=== PATIENT | female | born 1975 | race African-American/Black ===

== ENCOUNTER 2016-08-27 14:03 | Emergency (ER) | payer MEDICAID, OTHER ==
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
== END 2016-08-27 16:00 | disposition home or self-care (01) ==
LOC: ER 14:03
DX: G89.29 Other chronic pain (principal); M54.6 Pain in thoracic spine; K21.9 Gastro-esophageal reflux disease without esophagitis; F17.200 Nicotine dependence, unspecified, uncomplicated
CPT/HCPCS: Z7502

== ENCOUNTER 2018-08-14 15:01 | Inpatient (IN) | payer OTHER ==
--- NOTE | 2018-08-14 15:11 | ED Physician Chart ---
ED Chief Complaint/HPI - Patient Information Date Seen:: 08/14/18 Time Seen:: 15:00 Chief Complaint:: Left Arm Pain History of Present Illness:: onset x 12 hours of intermittent, sharp, non-MS type Left Arm Pain; pt denies trauma, LOC, ALOC, AMS, H/As, S/T, neck pain, C/P, SOB, Abd. Pain, A/N/V/D/C, fever, chills, or urinary s/s Allergies:: Allergies Allergy/AdvReac Type Severity Reaction Status Date / Time No Known Allergies Allergy Verified 08/27/16 14:10 Historian:: Patient, Family Member Review:: Nurse's Note Reviewed, Old Chart Reviewed ED Review of Systems - Review of Systems General/Constitutional: No fever, No chills, No weight loss, No weakness, No diaphoresis, No edema, No loss of appetite Skin: No skin lesions, No rash, No bruising Head: No headache, No light-headedness Eyes: No loss of vision, No pain, No diplopia ENT: No earache, No nasal drainage, No sore throat, No tinnitus Neck: No neck pain, No swelling, No thyromegaly, No stiffness, No mass noted Cardio Vascular: No chest pain, No palpitations, No PND, No orthopnea, No edema Pulmonary: No SOB, No cough, No sputum, No wheezing GI: No nausea, No vomiting, No diarrhea, No pain, No melena, No hematochezia, No constipation, No hematemesis G/U: No dysuria, No frequency, No hematuria, No nacturia Yield Loss Inspector: No vaginal discharge, No abnormal vaginal bleed, No contraction Musculoskeletal: No bone or joint pain, No back pain, Muscle pain Endocrine: No polyuria, No polydipsia Psychiatric: No prior psych history, No depression, No anxiety, No suicidal ideation, No homicidal ideation, No auditory hallucination, No visual hallucination Hematopoietic: No bruising, No lymphadenopathy Allergic/Immuno: No urticaria, No angioedema Neurological: No syncope, No focal symptoms, No weakness, No paresthesia, No headache, No seizure, No dizziness, No confusion, No vertigo ED Past Medical History - Past Medical History Obtainable: Yes Past Medical History: HTN Family History: HTN Social History: Smoker, Alcohol, No Drug Use, Surgical History: None Psychiatricy History: None Medication: Reviewed Family Medical History - Family Member Mother History Unknown: Yes Ethnicity: Non- Living Status: Still Living Hx Family Cancer: No Hx Family Coronary Artery Disease: No Hx Family Congestive Heart Failure: No Hx Family Hypertension: Yes Hx Family Stroke: No Hx Family Diabetes: No Hx Family Seizures: No Hx Family Dementia: No Hx Family AIDS: No Hx Family HIV: No Hx Family COPD: No Hx Family Hepatitis: No Hx Family Psychiatric Problems: No Hx Family Tuberculosis: No ED Physical Exam - Physical Examination General/Constitutional: Awake, Well-developed, well-nourished, Alert, No distress, GCS 15, Non-toxic appearing, Ambulatory Head: Atraumatic Eyes: Lids, conjuctiva normal, PERRL, EOMI Skin: Nl inspection, No rash, No skin lesions, No ecchymosis, Well hydrated, No lymphadenopathy ENMT: External ears, nose nl, TM canals nl, Nasal exam nl, Lips, teeth, gums nl , Oropharynx nl, Tonsils nl Other ENMT comments:: + Gingivitis Neck: Nontender, Full ROM w/o pain, No JVD, No nuchal rigidity, No bruit, No mass, No stridor Respiratory: Nl effort/Exclusion, Clear to Auscultation, No Wheeze/Rhonchi/Rales Cardio Vascular: RRR, No murmur, gallop, rubs, NL S1 S2, Carotid/Femoral/Distal pulses equal bilaterally GI: No tenderness/rebounding/guarding, No organomegaly, No hernia, Normal BS's, Nondistended, No mass/bruits, No McBurney tenderness : No CVA tenderness Extremities: No tenderness or effusion, Full ROM, normal strength in all extremities, No edema, Normal digits & nails Neuro/Psych: Alert/oriented, DTR's symmetric, Normal sensory exam, Normal motor strength, Judgement/insight normal, Mood normal, Normal gait, No focal deficits Misc: Normal back, No paraspinal tenderness ED Labs/Radiology/EKG Results - Lab Results Comments:: Reviewed - Radiology Results Comments:: NAD; No Fx; No Dislocations - EKG Interpretations EKG Time:: 15:31 Rate & Rhythm: 103; ST Comments:: non-specific st-t changes ED Septic Shock - . Is Septic Shock (SBP<90, OR Lactate>4 mmol\L) present?: No ED Reassessment (Disposition) - Reassessment Reassessment Condition:: Improved - Diagnosis Diagnosis:: Dx: Toothaches; Gingivitis; Angina Pectoris; Left Shoulder Pain; Sprains and Strains; Intractable Pain; Tachycardia - Aftercare/Follow up Instructions Aftercare/Follow-Up Instructions:: Counseled pt regarding lab results/diagnosis & need follow up, Counseled pt & family regarding lab results/diagnosis & need follow up - Patient Disposition Discharge/Transfer:: Acute Care w/in this hosp Accepting Physician:: Dr. Gomez Time Called:: 1700 Time Responded:: 17:00 Admitted to:: Telemetry Spoke to:: Dr. Gomez Admitting Medical Physician:: Dr. Gomez Condition at Disposition:: Stable, Improved
[2018-08-14 15:27] LABS: % EOSINOPHILS 0.5 % (0.0-5.0); % LYMPHOCYTES 7.6 % (20.0-50.0); % MONOCYTES 4.4 % (2.0-10.0); % NEUTROPHILS 86.5 % (40.0-80.0); BASOPHILE ABSOLUTE 0.1 Th/cumm (0-0.2); HEMATOCRIT 37.1 % (41.0-60); HEMOGLOBIN 12.1 gm/dL (12-16); LYMPHOCYTE ABSOLUTE 0.7 Th/cmm (1.5-3.0); MEAN CELL VOLUME 88.2 fl (81-100); MEAN CORPUSCULAR HEMOGLOBIN 28.7 pg (27.0-31.0); MEAN CORPUSCULAR HGB CONC 32.6 pg (28.0-36.0); MEAN PLATELET VOLUME 8.4 fl; MONOCYTE ABSOLUTE 0.4 Th/cmm (0.3-1.0); NEUTROPHILE ABSOLUTE 7.9 Th/cmm (1.8-8.0); PLATELET COUNT 265 Th/cmm (150-400); RED BLOOD COUNT 4.21 Mil/cmm (3.80-5.10); RED CELL DISTRIBUTION WIDTH 13.5 % (11.5-20.0); WHITE BLOOD COUNT 9.1 Th/cmm (4.8-10.8)
[2018-08-14 15:43] LABS: ALB/GLOB RATIO 1.2 (1.0-1.8); ALBUMIN 3.9 gm/dL (3.7-5.3); ALKALINE PHOSPHATASE 49 U/L (34-104); ANION GAP 11.5 (7.0-16.0); BILIRUBIN,TOTAL 0.3 mg/dL (0.3-1.0); BUN - UREA NITROGEN 7 mg/dL (7-25); CALCIUM SERUM 9.8 mg/dL (8.6-10.3); CARBON DIOXIDE 28.3 mEq/L (21.0-31.0); CHLORIDE 100 mEq/L (98-107); CHOLESTEROL 179 mg/dL (<200); CREATININE - SERUM 0.5 mg/dL (0.6-1.2); CREATININE KINASE 90 U/L (30-223); GFR AFRICAN-AMERICAN > 60.0 ml/min (>90); GFR NON AFRICAN-AMERICAN > 60.0 ml/min; GLUCOSE 103 mg/dL (70-105); HDL -HIGH DENSITY LIPOPROTEIN 54 mg/dL (23-92); POTASSIUM SERUM 3.8 mEq/L (3.5-5.1); SGOT 17 U/L (13-39); SGPT/ALT 15 U/L (7-52); SODIUM SERUM 136 mEq/L (136-145); TOTAL PROTEIN,SERUM 7.3 gm/dL (6.0-8.3); TRIGLYCERIDES 146 mg/dL (<150)
[2018-08-14 16:49] LABS: PROTHROMBIN TIME (TEST) < 9.5 SECONDS (9.5-11.5)
[2018-08-14] MEDS ORDERED: Aspirin 81mg Chewable Tab PO STA (17:11)
[2018-08-14] MEDS ORDERED: Aspirin 81mg Chewable Tab ONE (17:24)
[2018-08-15] MEDS: Hydrocodone/APAP 10 mg/325 mg Tab PO PRN ×3 (00:09→13:18)
[2018-08-15 01:50] VITALS: BP 138/92
--- NOTE | 2018-08-15 04:33 | Consultation ---
DATE OF CONSULTATION: HISTORY OF PRESENT ILLNESS: This 43-year-old female was seen and examined at the courtesy of Dr. Gomez. The patient was admitted here with left shoulder pain. The patient does have history of hypertension, does not take any medications for that. Described the pain as sharp left shoulder pain and sometimes going into the arm. There was no shortness of breath. There were no palpitations. No history of sweating. No history of PND. No history of orthopnea. No history of cough. No history of fever. No history of hemoptysis. No history of any injury to the left shoulder. No history of dizziness. No history of syncope. No history of seizures. No history of abdominal pain. No history of nausea or vomiting. No history of hematemesis. No history of melena. No history of bleeding per rectum. No history of change in bowel habits. No history of swelling over the legs. No history of intermittent claudications or phlebitis. There is no history of diabetes. PAST MEDICAL HISTORY: Usual childhood diseases. No history of rheumatic fever. No history of scarlet fever. History of hypertension in the past. SOCIAL HISTORY: Denies smoking or drinking. REVIEW OF SYSTEMS: As mentioned above. PHYSICAL EXAMINATION: VITAL SIGNS: Heart rate was 88, blood pressure was 139/92, afebrile, respiration was 18. SKIN: Normal. HEENT: Head normocephalic. Eyes: Conjunctivae were pink. There is no icterus in the eyes. Pupils both equally reactive to light. NECK: There was no increased jugular venous distention, no thyromegaly, and no lymphadenopathy. Carotids equal both sides. CHEST: Bilaterally symmetrical, moved well with respiration. Respiratory movements equal both sides. Trachea is central. There is note to percussion. Breath sound normal. CARDIOVASCULAR SYSTEM: PMI not well localized. There is no pulsation or thrill. No parasternal heave. S1 normal, S2 physiologic. There was no S3, no rub. ABDOMEN: Soft, no tenderness, no rigidity, no guarding and no organomegaly. Bowel sounds normal. EXTREMITIES: There is no edema. No calf tenderness. Peripheral pulses okay. LABORATORY AND DIAGNOSTIC DATA: INR was 0.40. D-dimer was less than 100. BNP was 5.2. WBC 9.1, RBC 4.21, hemoglobin 12.1, hematocrit 37.1, MCV 88.2, MCH 28.7, MCHC 32.6, platelet count is 265, neutrophils 86.5. Sodium 136, potassium 3.8, chloride 100, CO2 of 28.3, glucose 103, BUN 7, creatinine 0.5. Troponin was less than 0.01. Calcium was 9.8, total protein 7.3, albumin 3.9, globulin 3.4, bilirubin total 0.3, SGOT 17, SGPT 15, alkaline phosphatase 49. Cholesterol 179, triglycerides 146, HDL 54, LDL 110. CPK 90. EKG showed sinus tachycardia, normal axis, no acute changes. Chest x-ray, results are not available to me. IMPRESSION: Left shoulder pain, arm pain, rule out any remote possibility of any cardiac injury, hypertension, and history of gingivitis. PLAN: To continue cardiac monitoring. To repeat EKG in a.m. To get one more troponin, told to have been done and negative. Get lipid profile and TSH. In the meantime to put her on aspirin 81 mg daily, Lopressor 25 q.8 and Lipitor 10 mg daily. JOB# [id number]
[2018-08-15 06:47] LABS: % BASOPHILS 0.4 % (0.0-2.0); % EOSINOPHILS 0.4 % (0.0-5.0); % LYMPHOCYTES 8.2 % (20.0-50.0); % MONOCYTES 4.2 % (2.0-10.0); % NEUTROPHILS 86.8 % (40.0-80.0); HEMATOCRIT 35.1 % (41.0-60); HEMOGLOBIN 11.6 gm/dL (12-16); LYMPHOCYTE ABSOLUTE 0.7 Th/cmm (1.5-3.0); MEAN CELL VOLUME 87.5 fl (81-100); MEAN CORPUSCULAR HEMOGLOBIN 28.9 pg (27.0-31.0); MONOCYTE ABSOLUTE 0.4 Th/cmm (0.3-1.0); PLATELET COUNT 245 Th/cmm (150-400); RED BLOOD COUNT 4.02 Mil/cmm (3.80-5.10); RED CELL DISTRIBUTION WIDTH 13.5 % (11.5-20.0); WHITE BLOOD COUNT 9.1 Th/cmm (4.8-10.8)
[2018-08-15 07:10] LABS: BUN - UREA NITROGEN 8 mg/dL (7-25); CALCIUM SERUM 9.4 mg/dL (8.6-10.3); CARBON DIOXIDE 26.5 mEq/L (21.0-31.0); CHLORIDE 102 mEq/L (98-107); CHOLESTEROL 165 mg/dL (<200); CREATININE - SERUM 0.5 mg/dL (0.6-1.2); CREATININE KINASE 49 U/L (30-223); GFR AFRICAN-AMERICAN > 60.0 ml/min (>90); GFR NON AFRICAN-AMERICAN > 60.0 ml/min; GLUCOSE 116 mg/dL (70-105); HDL -HIGH DENSITY LIPOPROTEIN 55 mg/dL (23-92); POTASSIUM SERUM 3.5 mEq/L (3.5-5.1); SODIUM SERUM 136 mEq/L (136-145); TRIGLYCERIDES 94 mg/dL (<150)
--- NOTE | 2018-08-15 08:29 | Diagnostic Imaging Report ---
CHEST X-RAY: AP view INDICATION: pain COMPARISON: None FINDINGS: Patient is mildly rotated. Slight increased left basal lung markings are noted. There is no focal consolidation or pleural effusions The heart is normal in size. The osseous structures demonstrate no acute abnormalities. IMPRESSION: Slight increase left basal lung markings probably accentuated by rotation. No focal consolidation identified.
--- NOTE | 2018-08-15 08:42 | Diagnostic Imaging Report ---
Left shoulder 3 views Indication: pain Comparison: none Findings: Minimal degenerative changes are seen greatest at the AC joint. No evidence of an acute fracture or dislocation. No focal soft tissue swelling. Impression: No evidence of an acute fracture. Minimal degenerative changes, greatest at the AC joint. In the setting of trauma, if clinical symptoms persist and there is continued concern for an occult fracture, follow up exams in 5-7 days is suggested.
[2018-08-15] MEDS ORDERED: Atorvastatin Calcium 10 MG TAB PO SCH (09:00)
[2018-08-15] MEDS ORDERED: Aspirin 81mg Chewable Tab PO SCH (09:00)
[2018-08-15] MEDS ORDERED: cefTRIAXone 1 GM in Sodium Chloride 0.9% 50 ML IV SCH (09:00)
--- NOTE | 2018-08-15 17:02 | History & Physical ---
ADMIT DATE: 08/14/2018 HISTORY OF PRESENT ILLNESS: I saw the patient in the Emergency Room. He has been having 12 hours of intermittent left arm pain. Denies any history of trauma. The patient is known to have history of hypertension. The patient was seen by Dr. Taylor and admitted. The patient had an x-ray, it has been negative, workup was negative, admitted for a left-sided chest pain, left-sided arm pain, rule out acute coronary syndrome. The patient known to have history of hypertension. The patient has no history of melena, no other problem. The patient has no history of rheumatic fever. SOCIAL HISTORY: Unremarkable. PHYSICAL EXAMINATION: VITAL SIGNS: Stable. HEAD: Normal. ENT: Normal. NECK: Supple, nontender. LUNGS: Clear. CARDIOVASCULAR SYSTEM: S1, S2 heard. ABDOMEN: Soft. ____ secondary to the left-sided chest wall as well as shoulder area, shoulder pain, arm pain, rule out acute coronary syndrome, hypertension, history of gingivitis. PLAN: The patient was admitted. I will go ahead and give him IV antibiotics. Cardiac workup. JOB# [id number]
--- NOTE | 2018-08-15 17:37 | Cardiology ---
08/15/[address] Gomez. M-MODE ECHOCARDIOGRAM: Mitral valve, anterior leaflet of mitral valve shows normal excursion, EF velocity. Posterior leaflet of the mitral valve shows normal excursion. Left ventricular posterior wall shows increased thickness, normal excursion. Interventricular septum shows increased thickness, normal excursion, hypertrophy of the left ventricle, ejection fraction 67%. Left atrium normal. Aortic root shows normal dimension, normal excursion of aortic leaflets. CONCLUSION: Hypertrophy of the left ventricle, ejection fraction 67%. 2D ECHO: Long axis view showed normal sized left ventricle with hypertrophy of the left ventricle. Left atrium normal. Aortic root shows normal dimension, normal excursion of aortic leaflets. Short axis view of mitral valve normal. Short axis view of aortic valve normal. Apical four chamber view showed normal sized left ventricle, left atrium, right ventricle, right atrium, tricuspid and mitral valve, ejection fraction 67%. CONCLUSION: Hypertrophy of the left ventricle, ejection fraction 67%. Doppler study shows mild to moderate mitral regurgitation, mild to moderate tricuspid regurgitation, mild to moderate pulmonary regurgitation, right ventricular systolic pressure 34 mmHg. [facility]# [id number]
== END 2018-08-15 18:35 | disposition home or self-care (01) | DRG 351 ==
LOC: ER 15:01 → TELE 18:30
PROVIDERS: ADMIT Internal Medicine; ATTEND Internal Medicine
DX: M25.512 Pain in left shoulder (principal); I10 Essential (primary) hypertension; K05.10 Chronic gingivitis, plaque induced; T14.8XXA Other injury of unspecified body region, initial encounter; R07.89 Other chest pain; I20.9 Angina pectoris, unspecified; X58.XXXA Exposure to other specified factors, initial encounter; R00.0 Tachycardia, unspecified; Y93.89 Activity, other specified; Y92.89 Other specified places as the place of occurrence of the external cause; Y99.8 Other external cause status
CPT/HCPCS: 36415-UA; 71045-TC; 73030-TC-LT; 80048-TC; 80053-TC; 80061-TC; 82550-TC; 83880-TC; 84443-TC; 84484-TC; 84703-TC; 85007-TC; 85025-TC; 85379-TC; 85610-TC; 93005; 94760; J0696; J1885; J7040; Z7610